=== PATIENT | male | born 1965 | race African-American/Black ===

== ENCOUNTER 2017-03-10 21:03 | Emergency (ER) | payer OTHER ==
[~2017-03-10 21:03] MED LIST: COMBIVENT INH14.7 GM INH; FLEXERIL10 M1 PO; PREDNISONE PO; VOLTAREN75 MG PO; ZITHROMAX1 G/PKT PO
== END 2017-03-10 21:35 | disposition left against medical advice (07) ==
LOC: CED 21:03
DX: Z53.21 Procedure and treatment not carried out due to patient leaving prior to being seen by health care provider (principal)